=== PATIENT | female | born 1995 | race Caucasian/White ===

== ENCOUNTER → 2021-06-02 | Outpatient (CLI) | payer OTHER | LOC: LAB 14:06 | DX: Z32.00 Encounter for pregnancy test, result unknown (principal) | CPT/HCPCS: 84702 ==

== ENCOUNTER 2021-11-02 18:31 | Outpatient (CLI) | payer OTHER | END 2021-11-02 21:22 | disposition home or self-care (01) | LOC: GENOP 18:31 | DX: O99.891 Other specified diseases and conditions complicating pregnancy (principal); M54.9 Dorsalgia, unspecified; R10.9 Unspecified abdominal pain; Z88.0 Allergy status to penicillin; Z88.1 Allergy status to other antibiotic agents; Z3A.21 21 weeks gestation of pregnancy | CPT/HCPCS: 81001; 96360; J0696; J1200 ==

== ENCOUNTER 2022-03-05 16:37 | Inpatient (IN) | payer OTHER ==
[~2022-03-05] VITALS: Ht 167.6 cm; Wt 125.6 kg
[2022-03-05 17:50] LABS: HEMOGLOBIN 11.3 gm/dl (12.3-15.3); RED BLOOD COUNT 4.23 M/UL (4.00-5.10); WHITE BLOOD COUNT 7.8 K/UL (4.5-11.0)
[2022-03-06] MEDS ORDERED: IBU600 MG PO (17:21)
[2022-03-06] MEDS ORDERED: COLACE100 MG PO (17:21)
[2022-03-07 04:30] LABS: HEMOGLOBIN 11.5 gm/dl (12.3-15.3)
== END 2022-03-07 18:25 | disposition home or self-care (01) | DRG 807 ==
LOC: OB 16:37
PROVIDERS: Obstetrics & Gynecology; ADMIT Obstetrics & Gynecology
PROC: 10E0XZZ Delivery of Products of Conception, External Approach (ICD-10-PCS; principal; 2022-03-06)
PROC: 10907ZC Drainage of Amniotic Fluid, Therapeutic from Products of Conception, Via Natural or Artificial Opening (ICD-10-PCS; 2022-03-06)
PROC: 3E033VJ Introduction of Other Hormone into Peripheral Vein, Percutaneous Approach (ICD-10-PCS; 2022-03-06)
PROC: 4A1H7CZ Monitoring of Products of Conception, Cardiac Rate, Via Natural or Artificial Opening (ICD-10-PCS; 2022-03-06)
PROC: 10H073Z Insertion of Monitoring Electrode into Products of Conception, Via Natural or Artificial Opening (ICD-10-PCS; 2022-03-06)
PROC: 0UH97HZ Insertion of Contraceptive Device into Uterus, Via Natural or Artificial Opening (ICD-10-PCS; 2022-03-06)
PROC: 0HQ9XZZ Repair Perineum Skin, External Approach (ICD-10-PCS; 2022-03-06)
DX: O99.824 Streptococcus B carrier state complicating childbirth (principal); Z37.0 Single live birth; O70.0 First degree perineal laceration during delivery; O12.14 Gestational proteinuria, complicating childbirth; Z3A.38 38 weeks gestation of pregnancy; Z90.49 Acquired absence of other specified parts of digestive tract; Z28.310 Unvaccinated for COVID-19; Z88.0 Allergy status to penicillin
CPT/HCPCS: 81001; 82800; 85014; 85018; 85025; J2405; J2590; J3370; J7070